=== PATIENT | male | born 1960 | race American Indian/Alaskan Native ===

== ENCOUNTER 2016-07-24 08:39 | Emergency (ER) | payer BC ==
[2016-07-24 09:02] VITALS: BP 101/68
[2016-07-24] MEDS ORDERED: TORADOL IM ONE (09:43)
--- NOTE | 2016-07-24 09:46 | Emergency Department Report ---
ED Back Pain/Injury HPI - General Chief Complaint: Back Pain/Injury Stated Complaint: BACK PAIN Time Seen by Provider: 07/24/16 09:41 Source: patient Limitations: No Limitations - History of Present Illness Initial Comments: 56-year-old male comes in for complaint of back pain that started Sunday. 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 Patient says what aggravates it worsens with movement and walking what makes it better is lying down. He denies any hematuria no dysuria he denies any radiation to the lower extremities or trauma. He has been taking ibuprofen 800 mg times once a day. Reports that the ibuprofen helps but it comes back. He has no past medical history. He is no medications no known drug allergies. - Related Data Previous Rx's Medication Instructions Recorded Last Taken Type Naproxen [Naprosyn] 500 mg PO BID #20 tablet 07/24/16 Unknown Rx methOCARBAMOL [Robaxin TAB] 500 mg PO BID #20 tab 07/24/16 Unknown Rx Allergies Allergy/AdvReac Type Severity Reaction Status Date / Time No Known Allergies Allergy Unverified 05/23/15 13:51 ED Review of Systems ROS: Stated complaint: BACK PAIN Other details as noted in HPI Constitutional: no symptoms reported Genitourinary: denies: urgency, dysuria, frequency, hematuria Musculoskeletal: back pain (left side) Skin: denies: rash Neurological: denies: headache, weakness, numbness, paresthesias, abnormal gait ED Past Medical Hx - Past Medical History Hx Hypertension: Yes - Surgical History Additional Surgical History: prostate - Social History Smoking Status: Never Smoker Substance Use Type: None - Medications Home Medications: Home Medications Medication Instructions Recorded Confirmed Last Taken Type Naproxen [Naprosyn] 500 mg PO BID #20 tablet 07/24/16 Unknown Rx methOCARBAMOL [Robaxin TAB] 500 mg PO BID #20 tab 07/24/16 Unknown Rx ED Physical Exam - General Limitations: No Limitations General appearance: alert, in no apparent distress - Head Head exam: Present: atraumatic, normocephalic - Back Exam Back exam: Present: normal inspection, full ROM (pain with bending). Absent: tenderness, CVA tenderness (R), CVA tenderness (L), muscle spasm, paraspinal tenderness, vertebral tenderness - Expanded Back Exam Expanded Back exam: Negative Straight Leg Raising: Left, Right - Neurological Exam Neurological exam: Present: alert, altered, oriented X3, normal gait - Skin Skin exam: Present: warm, dry, intact ED Course Vital Signs 07/24/16 08:58 Temperature 97.5 F L Pulse Rate 58 L Respiratory 16 Rate Blood Pressure 101/68 O2 Sat by Pulse 98 Oximetry ED Medical Decision Making - Medical Decision Making Patient's been evaluated but this provided fast track. We will give patient a Toradol shot of 30 mg IM now. Discussed with patient that we would discharge him on Robaxin as well as naproxen for pain management. Recommend patient to follow up with his primary care provider or an orthopedic. The patient needs to return if he starts to have any radiating pain to his testicles starts to have any blood in his urine or any pain when he urinates. He needs to return back to emergency room as soon as possible. He verbalized understanding. Critical care attestation.: If time is entered above; I have spent that time in minutes in the direct care of this critically ill patient, excluding procedure time. ED Disposition Clinical Impression: Lumbago without sciatica Qualifiers: Chronicity: acute Back pain laterality: left Qualified Code(s): M54.5 - Low back pain Lumbago Qualifiers: Chronicity: acute Back pain laterality: left Sciatica presence: without sciatica Qualified Code(s): M54.5 - Low back pain Disposition: DISCHARGED TO HOME OR SELFCARE Is pt being admited?: No Does the pt Need Aspirin: No Condition: Stable Instructions: Low Back Strain (ED) Additional Instructions: Recommended to take pain medications as prescribed. Recommending stretching first thing in the morning area recommend following up with the primary care provider or orthopedic for further evaluation. Prescriptions: Naproxen [Naprosyn] 500 mg PO BID #20 tablet methOCARBAMOL [Robaxin TAB] 500 mg PO BID #20 tab Referrals: DELMI HANLEY JR, MD [Primary Care Provider] - 3-5 Days CALLY RAMIREZ MD [Staff Physician] - 3-5 Days MARY SEBASTIAN MD [Staff Physician] - 3-5 Days
== END 2016-07-24 10:09 | disposition home or self-care (01) ==
LOC: ED 08:39
DX: M54.5 Low back pain (principal); I10 Essential (primary) hypertension
CPT/HCPCS: 96372; 99282; J1885

== ENCOUNTER 2017-06-06 10:36 | Emergency (ER) | payer SELFPAY ==
--- NOTE | 2017-06-06 11:44 | Emergency Department Report ---
HPI - General Chief Complaint: Urogenital-Male Time Seen by Provider: 06/06/17 11:16 - HPI HPI: Room 18 The patient is a 57-year-old male presenting with a chief complaint priapism. The patient states she has a history of erectile dysfunction and self medicates with "an injection" that was prescribed by Dr. Fonseca (patient states she cannot remember name the medication). The patient states he gave himself an injection at midnight and he has had an erection since. The patient states he contacted Dr. Fonseca's office and was instructed to come to the ED Location: Penis Duration: Constant since midnight Quality: Pain Severity: Severe Modifying factors: [see above] Context: [see above] Mode of transportation: [not driving] ED Past Medical Hx - Past Medical History Previous Medical History?: Yes Hx Hypertension: Yes Additional medical history: Erectile dysfunction - Surgical History Past Surgical History?: Yes Additional Surgical History: prostate, Hernea - Family History Family history: no significant - Social History Smoking Status: Never Smoker Substance Use Type: None (denies illicit drug use), Alcohol (occasional) - Medications Home Medications: Home Medications Medication Instructions Recorded Confirmed Last Taken Type Naproxen [Naprosyn] 500 mg PO BID #20 tablet 07/24/16 Unknown Rx methOCARBAMOL [Robaxin TAB] 500 mg PO BID #20 tab 07/24/16 Unknown Rx ED Review of Systems ROS: Stated complaint: ERECTABLE DYSFUNCTION Other details as noted in HPI Genitourinary: other (penile pain/priapism) Physical Exam - Physical Exam Vital Signs: Vital Signs 06/06/17 10:47 Temperature 97 F L Pulse Rate 81 Respiratory 22 Rate Blood Pressure 148/107 O2 Sat by Pulse 97 Oximetry Physical Exam: GENERAL: The patient is well-developed well-nourished male lying on a shorter appearing to be in moderate discomfort. [] HEENT: Normocephalic. Atraumatic. NECK: Supple. Trachea midline CHEST/LUNGS: There is no respiratory distress noted. HEART/CARDIOVASCULAR: Regular. There is no tachycardia. ABDOMEN: There is no abdominal distention. SKIN: There is no diaphoresis. NEURO: The patient is awake, alert, and oriented. The patient is cooperative.The patient has normal speech MUSCULOSKELETAL: There is no evidence of acute injury. GENITOURINARY: Priapism ED Course Vital Signs 06/06/17 10:47 Temperature 97 F L Pulse Rate 81 Respiratory 22 Rate Blood Pressure 148/107 O2 Sat by Pulse 97 Oximetry - Reevaluation(s) Reevaluation #1: 06/06/17 13:39 Patient improved penis is now flaccid. Patient states he is ready to go home - Consultations Consultation #1: 06/06/17 11:25 Urology paged 06/06/17 11:[address] Fonseca. Recommends administering terbutaline 1 mg IV and applying an ice pack to the priapism. States he is en route to the ED for management 06/06/17 13:55 Dr. Fonseca informed that priapism has resolved. Dr Fonseca has given the patient a prescription for ciprofloxacin and [place] and states the patient can keep his normal appointment ED Medical Decision Making - Differential Diagnosis priapism Critical care attestation.: If time is entered above; I have spent that time in minutes in the direct care of this critically ill patient, excluding procedure time. ED Disposition Clinical Impression: Priapism Disposition: DC-01 TO HOME OR SELFCARE Is pt being admited?: No Does the pt Need Aspirin: No Condition: Stable Instructions: Priapism (ED) Additional Instructions: Return to the emergency department immediately should you develop worsening symptoms, fever, inability to tolerate food or liquid or any other concerns. Referrals: PRIMARY CARE, [Primary Care Provider] - 3-5 Days BEBETO FONSECA MD [Staff Physician] - 3-5 Days Time of Disposition: 13:55
[2017-06-06] MEDS ORDERED: ZOFRAN IV ONE (11:46)
[2017-06-06] MEDS ORDERED: BRETHINE IVP ONE (11:46)
[2017-06-06] MEDS ORDERED: SUBLIMAZE IV ONE (11:46)
[2017-06-06] MEDS ORDERED: NACL 0.9% 1000 ML 1,000 ML ONE (11:57)
[2017-06-06] MEDS ORDERED: NEO-SYNEPHRINE 1 MG, NACL P/F VIAL (10 ML) 9.9 ML IJ**NOT IV ONE (12:27)
--- NOTE | 2017-06-06 13:48 | Consultation ---
History of Present Illness - Reason for Consult Consult date: 06/06/17 - History of Present Illness The patient is a 57-year-old male presenting with a chief complaint priapism. The patient states she has a history of erectile dysfunction and self medicates with "an injection." The patient states he gave himself an injection at midnight and he has had an erection since. pmhx - prostate cancer pshx - robotic prostatectomy exam uncirc - erection understerile conditions--aspiration of 15cc dark blood with loss of priapism pt has ice pack observed for 1 hour - no return of priapism A/P Priapism home with cipro & norco keep rountine appt Medications and Allergies Allergies Allergy/AdvReac Type Severity Reaction Status Date / Time No Known Allergies Allergy Unverified 05/23/15 13:51 Home Medications Medication Instructions Recorded Confirmed Last Taken Type Naproxen [Naprosyn] 500 mg PO BID #20 tablet 07/24/16 Unknown Rx methOCARBAMOL [Robaxin TAB] 500 mg PO BID #20 tab 07/24/16 Unknown Rx Exam - Constitutional Vitals: Temp Pulse Resp BP Pulse Ox 97 F L 81 18 148/107 97 06/06/17 10:47 06/06/17 10:47 06/06/17 12:12 06/06/17 10:47 06/06/17 10:47
[2017-06-06 14:23] VITALS: BP 112/75
== END 2017-06-06 14:23 | disposition home or self-care (01) ==
LOC: ED 10:36
DX: N48.30 Priapism, unspecified (principal); I10 Essential (primary) hypertension; Z98.890 Other specified postprocedural states
CPT/HCPCS: 96374; 96375; 99282; J2370; J2405; J3010; J3105; J7030